=== PATIENT | female | born 1990 | race Caucasian/White ===

== ENCOUNTER 2016-12-31 17:15 | Emergency (ER) | payer BC ==
[2016-12-31 17:16] VITALS: BMI 35.9
[2016-12-31 17:28] VITALS: BP 148/83; PULSE 101; RESP 19; TEMP 98.7; O2SAT 100
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
== END 2016-12-31 19:08 | disposition home or self-care (01) ==
LOC: ED 17:15
DX: M54.9 Dorsalgia, unspecified (principal)